=== PATIENT | female | born 1960 | race Caucasian/White ===

== ENCOUNTER → 2017-07-29 | Outpatient (CLI) | payer BC ==
[~2017-07-29] MED LIST: ABAT1INJ2 INJ; BLAC40CA2 PO; CHOL100010 PO; CYAN100T PO; FLUT0.15; FOLI1TAB7 PO; METH25IN13 SQ; MULTTAB58 PO; OMEP20CA59 PO; PRED-301 PO
--- NOTE | 2017-07-29 15:39 | MAMMOGRAPHY REPORT ---
BILATERAL DIGITAL SCREENING MAMMOGRAM TOMOSYNTHESIS WITH CAD: 07/29/2017 CLINICAL HISTORY: Routine screening. Patient has no complaints. TECHNIQUE: Breast tomosynthesis in addition to standard 2D mammography was performed. Current study was also evaluated with a Computer Aided Detection (CAD) system. COMPARISON: Comparison is made to exams dated: 07/14/2016 mammogram, 07/11/2015 mammogram, 06/05/2014 m ammogram, 05/28/2014 mammogram, 05/18/2014 mammogram, and 06/09/2013 mammogram - [facility] nter. BREAST COMPOSITION: There are scattered areas of fibroglandular density in both breasts. FINDINGS: No suspicious masses, calcifications, or areas of architectural distortion are noted in ei ther breast. There has been no significant interval change compared to prior exams. A biopsy marker clip is again noted in the left lower inner quadrant. Circumscribed benign-appearing 4 mm mass in th e left lower inner quadrant is stable. IMPRESSION: ACR BI-RADS CATEGORY 2: BENIGN There is no mammographic evidence of malignancy. A 1 year screening mammogram is recommended. The pa tient will receive written notification of the results. Approximately 10% of breast cancers are not detected with mammography. A negative mammographic report should not delay biopsy if a clinically suggestive mass is present. Kathya Liz M.D. /:07/29/2017 15:24:23 Geriatric Assistant: Elvi GAMING(Rubi)(Alfredo)(BD), [facility] letter sent: Normal 1/2 BI-RADS Code: ACR BI-RADS Category 2: Benign
== END | disposition home or self-care (01) ==
LOC: C.MAMM 12:49
PROVIDERS: ATTEND Family Medicine
DX: Z12.31 Encounter for screening mammogram for malignant neoplasm of breast (principal)

== ENCOUNTER → 2018-01-21 | Outpatient (CLI) | payer OTHER ==
[~2018-01-21] MED LIST changes: -FOLI1TAB7 PO; +FOLI1TAB8 PO
--- NOTE | 2018-01-21 16:33 | DIAGNOSTIC IMAGING REPORT ---
ADDENDUM After further review, an inflammatory arthritis cannot be favored given the absence of regional osteopenia and a prominent component of subchondral sclerosis and cystic change at the radiocarpal joint. This would favor CPPD, osteoarthritis, or posttraumatic arthritis. Electronically signed by: Aron Rosales M.D. 01/21/2018 4:52 PM Dictated Date/Time: 01/21/2018 4:52 PM ORIGINAL REPORT L HAND MIN 3 VIEWS ROUTINE CLINICAL HISTORY: 57 years-old Female presenting with BILATERAL LEG AND FOOT PAIN. TECHNIQUE: Frontal, oblique, and lateral views of the left hand were obtained. COMPARISON: Correlation made to plain radiographs of the right hand performed the same day. FINDINGS: Extensive joint space loss at the radiocarpal articulation with subchondral sclerosis and cystic change. No apparent widening of the scapholunate interval. The carpometacarpal, metacarpophalangeal, and interphalangeal joints are preserved. No acute fracture or malalignment. IMPRESSION: Extensive degenerative change at the radiocarpal articulation. This distribution would be atypical for osteoarthritis and could suggest an inflammatory arthropathy such as rheumatoid arthritis. Electronically signed by: Aron Rosales M.D. 01/21/2018 4:31 PM Dictated Date/Time: 01/21/2018 4:30 PM
--- NOTE | 2018-01-21 16:36 | DIAGNOSTIC IMAGING REPORT ---
ADDENDUM After further review, an inflammatory arthritis cannot be favored given the absence of regional osteopenia and a prominent component of subchondral sclerosis and cystic change at the radiocarpal joint. This would favor CPPD, osteoarthritis, or posttraumatic arthritis. Electronically signed by: Aron Rosales M.D. 01/21/2018 4:52 PM Dictated Date/Time: 01/21/2018 4:51 PM ORIGINAL REPORT R HAND MIN 3 VIEWS ROUTINE CLINICAL HISTORY: 57 years-old Female presenting with BILATERAL LEG AND FOOT PAIN. TECHNIQUE: Frontal, oblique, and lateral views of the right hand were obtained. COMPARISON: Correlation made to plain radiographs of the left hand performed the same day. FINDINGS: Severe joint space loss, subchondral sclerosis, and cystic change at the radiocarpal articulation. No evidence of widening of the scapholunate interval. Carpometacarpal, metacarpophalangeal, and interphalangeal joints are relatively preserved. No acute fracture or malalignment. No soft tissue abnormality. IMPRESSION: Severe degenerative change of the radiocarpal articulation, which are being atypical distribution for osteoarthritis. This could suggest calcium pyrophosphate dihydrate deposition disease (CPPD) versus posttraumatic arthritis or an inflammatory arthritis such as rheumatoid arthritis. Electronically signed by: Aron Rosales M.D. 01/21/2018 4:35 PM Dictated Date/Time: 01/21/2018 4:31 PM
[2018-01-21 16:41] LABS: BASO % 0.1 %; BASO ABS # 0.01 K/uL (0-0.2); EOS % 0.4 %; EOS ABS # 0.04 K/uL (0-0.5); HEMATOCRIT 41.1 % (37-47); HEMOGLOBIN 14.2 g/dL (12.0-16.0); IG# 0.02 K/uL (0.00-0.02); LYMPH % 15.8 %; LYMPH ABS # 1.42 K/uL (1.2-3.4); MEAN CELL VOLUME 96.9 fL (80-100); MEAN CORPUSCULAR HEMOGLOBIN 33.5 pg (25-34); MEAN CORPUSCULAR HGB CONC 34.5 g/dl (32-36); MEAN PLATELET VOLUME 12.8 fL (7.4-10.4); MONO ABS # 0.54 K/uL (0.11-0.59); NEUT % 77.5 %; NEUT ABS # 6.96 K/uL (1.4-6.5); PLATELET COUNT 202 K/uL (130-400); RED CELL DISTRIBUTION WIDTH CV 13.9 % (11.5-14.5); RED CELL DISTRIBUTION WIDTH SD 49.4 fL (36.4-46.3); WHITE BLOOD COUNT 8.99 K/uL (4.8-10.8)
--- NOTE | 2018-01-21 16:50 | DIAGNOSTIC IMAGING REPORT ---
R FOOT MIN 3 VIEWS ROUTINE, L FOOT MIN 3 VIEWS ROUTINE HISTORY: 57 years-old Female BILATERAL LEG AND FOOT PAIN chronic bilateral foot pain with history of rheumatoid arthritis COMPARISON: None available TECHNIQUE: 3 views of the bilateral feet for a total of 6 images FINDINGS: RIGHT FOOT: Severe joint space narrowing and subchondral cystic changes, subchondral sclerosis and marginal osteophytosis is compatible with osteoarthritis. Moderate osteoarthritis is also noted involving the second MTP joint. Mostly mild interphalangeal degenerative changes are noted throughout. The bones appear mildly demineralized. Moderate degenerative changes are also noted about the midfoot and hindfoot. No acute fracture, or subluxation. There is a probable subtle marginal erosion noted involving the medial aspect of the fourth metatarsal head. LEFT FOOT: Severe osteoarthritis of the first MTP joint with mild soft tissue prominence. The bones appear mildly demineralized. Mild to moderate degenerative changes are noted throughout the remaining MTP and interphalangeal joints. No acute fracture or subluxation. No definite evidence of erosive arthropathy. Small uncalcified noted about the calcaneus. Moderate dorsal spurring about the midfoot. Mild dorsal forefoot soft tissue swelling. IMPRESSION: 1. No acute fracture or subluxation. 2. 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 3. Probable subtle marginal erosion noted involving the medial aspect of the fourth metatarsal head. 4. Mild forefoot soft tissue swelling about the left foot. The above report was generated using voice recognition software. It may contain grammatical, syntax or spelling errors. Electronically signed by: Albaro Rhodes M.D. 01/21/2018 4:48 PM Dictated Date/Time: 01/21/2018 4:43 PM
== END | disposition home or self-care (01) ==
LOC: C.LAB1850 16:02
PROVIDERS: ATTEND Internal Medicine Rheumatology
DX: M79.671 Pain in right foot (principal); M79.672 Pain in left foot; Z79.899 Other long term (current) drug therapy; M06.071 Rheumatoid arthritis without rheumatoid factor, right ankle and foot; M06.072 Rheumatoid arthritis without rheumatoid factor, left ankle and foot; M19.041 Primary osteoarthritis, right hand; M19.042 Primary osteoarthritis, left hand

== ENCOUNTER → 2018-01-24 | Outpatient (CLI) | payer OTHER ==
[2018-01-24 15:07] LABS: ALBUMIN 3.3 gm/dl (3.4-5.0); ALT/SGPT 30 U/L (12-78); CREATININE 0.88 mg/dl (0.60-1.20)
[2018-01-24 15:10] LABS: ALKALINE PHOSPHATASE 85 U/L (45-117); AST/SGOT 16 U/L (15-37); TOTAL PROTEIN 7.8 gm/dl (6.4-8.2); TRANSFERRIN 212 mg/dl (200-360)
== END | disposition home or self-care (01) ==
LOC: C.LAB1850 13:55
PROVIDERS: ATTEND Internal Medicine Rheumatology
DX: M79.604 Pain in right leg (principal); M79.605 Pain in left leg; M79.671 Pain in right foot; M79.672 Pain in left foot

== ENCOUNTER → 2018-01-26 | Outpatient (CLI) | payer OTHER ==
--- NOTE | 2018-01-26 14:59 | DIAGNOSTIC IMAGING REPORT ---
BONE SCAN WHOLE BODY CLINICAL HISTORY: M06.9 Rheumatoid [id number] High risk medication use COMPARISON STUDY: Conventional radiographic evaluation of the feet dated January 21, 2018 FINDINGS: The patient was injected with 27.4 mCi of technetium 99m MDP. There are foci of mild increased activity at the level of the left knee consistent with degenerative/arthritic change. There is a focus of increased activity within the right hemimandible, likely secondary to dentition. There are foci of increased activity at the level of the first metatarsal phalangeal joint and first dorsal metatarsal joint, consistent with arthritic changes as described on the recent x-ray. There is a focus of intense increased activity at the level of the left first metatarsal phalangeal joint, consistent with arthritic changes as visualized on the recent x-ray. IMPRESSION: 1. Foci of increased activity within the feet consistent with arthritic changes 2. Focus of mild increased activity left knee, likely arthritic 3. Focus of increased activity within the right hemimandible, likely secondary to underlying dentition 4. Otherwise normal whole-body bone scan Electronically signed by: Esvin Rosales M.D. 01/26/2018 2:58 PM Dictated Date/Time: 01/26/2018 2:55 PM
== END | disposition home or self-care (01) ==
LOC: C.NUCL 10:53
PROVIDERS: ATTEND Internal Medicine Rheumatology
DX: M06.9 Rheumatoid arthritis, unspecified (principal); Z79.899 Other long term (current) drug therapy; M89.9 Disorder of bone, unspecified

== ENCOUNTER → 2018-03-08 | Outpatient (CLI) | payer OTHER ==
[2018-03-10 07:33] LABS: QUANTIF MITOGEN-NIL 9.65 IU/ML; QUANTIFERON NEGATIVE (NEGATIVE)
== END | disposition home or self-care (01) ==
LOC: C.LAB1850 14:01
PROVIDERS: ATTEND Internal Medicine Rheumatology
DX: M06.9 Rheumatoid arthritis, unspecified (principal)

== ENCOUNTER → 2018-06-17 | Outpatient (CLI) | payer OTHER ==
[2018-06-17 12:33] LABS: BASO % 0.1 %; BASO ABS # 0.01 K/uL (0-0.2); EOS % 1.5 %; EOS ABS # 0.11 K/uL (0-0.5); HEMATOCRIT 43.8 % (37-47); HEMOGLOBIN 14.3 g/dL (12.0-16.0); IG# 0.04 K/uL (0.00-0.02); LYMPH % 15.5 %; LYMPH ABS # 1.15 K/uL (1.2-3.4); MEAN CELL VOLUME 96.9 fL (80-100); MEAN CORPUSCULAR HEMOGLOBIN 31.6 pg (25-34); MEAN CORPUSCULAR HGB CONC 32.6 g/dl (32-36); MEAN PLATELET VOLUME 14.2 fL (7.4-10.4); MONO % 11.8 %; MONO ABS # 0.88 K/uL (0.11-0.59); NEUT % 70.6 %; NEUT ABS # 5.24 K/uL (1.4-6.5); PLATELET COUNT 197 K/uL (130-400); RED CELL DISTRIBUTION WIDTH CV 14.8 % (11.5-14.5); RED CELL DISTRIBUTION WIDTH SD 52.3 fL (36.4-46.3); WHITE BLOOD COUNT 7.43 K/uL (4.8-10.8)
[2018-06-17 12:53] LABS: ALBUMIN 3.2 gm/dl (3.4-5.0); ALKALINE PHOSPHATASE 76 U/L (45-117); ALT/SGPT 33 U/L (12-78); AST/SGOT 20 U/L (15-37); CREATININE 0.75 mg/dl (0.60-1.20); TOTAL PROTEIN 7.3 gm/dl (6.4-8.2)
== END | disposition home or self-care (01) ==
LOC: C.LAB1850 10:26
PROVIDERS: ATTEND Internal Medicine Rheumatology
DX: M06.9 Rheumatoid arthritis, unspecified (principal); M19.071 Primary osteoarthritis, right ankle and foot; M19.072 Primary osteoarthritis, left ankle and foot; Z79.52 Long term (current) use of systemic steroids

== ENCOUNTER 2023-06-02 10:42 | Observation (INO) ==
[2023-06-02] MEDS ORDERED: SODIUM CHLORIDE 0.9% 1000ML 1,000 ML IV ONE (11:32)
--- NOTE | 2023-06-02 11:35 | Emergency Department Note ---
Impression & Plan Pancreatitis, Abdominal pain ED Provider Note NAME: ADRIEN ARREAGA AGE: 62 SEX: F : 1960 ARRIVES VIA: Walk-In INFORMANT: Patient ED PROVIDER(S): Jordan Carmichael DO CHIEF COMPLAINT: Right mid abdominal pain HPI:Patient is a 62-year-old female who presents ER for right mid abdominal pain. This started Wednesday night into Wednesday morning. Associated with nausea but no vomiting. She notes that it was worse with eating and drinking. It improved on Wednesday and started back up again yesterday. No previous abdominal surgeries. No dysuria, urgency, or frequency. No other exacerbating or remitting factors. No chest pain or shortness of breath. PAST MEDICAL HISTORY:See Below PAST SURGICAL HISTORY:See Below FAMILY HISTORY:See Below SOCIAL HISTORY:See Below HOME MEDICATIONS:See Below ALLERGIES:See Below VITALS:See Below PHYSICAL EXAMINATION: GENERAL: Sitting up in bed, alert, well appearing, well nourished, no distress, non-toxic EYE EXAM: normal conjunctiva. OROPHARYNX: no exudate, no erythema, lips, buccal mucosa, and tongue normal and mucous membranes are moist NECK: supple, no nuchal rigidity, no adenopathy, non-tender LUNGS: Clear to auscultation. Normal chest wall mechanics HEART: no murmurs, S1 normal and S2 normal ABDOMEN: abdomen soft, TTP in RLQ, normo-active bowel sounds, no masses, no rebound or guarding. UPPER EXTREMITIES: upper extremities are grossly normal. LOWER EXTREMITIES: No pitting edema. NEURO EXAM: Normal sensorium, cranial nerves II-XII grossly intact, normal speech, no gross weakness of arms, no gross weakness of legs. MEDICAL DECISION MAKING: Patient is a 62-year-old female who presents ER for above-stated complaint. IV was established blood work was obtained. Labs show mild leukopenia at 4000. Hemoglobin elevated 16. BMP along with LFTs bilirubin was unremarkable. Lipase was elevated at 250. UA was contaminated. COVID-negative. CT abdomen pelvis showed no acute pathology. Patient was given an IV fluids. Patient was updated bedside. She declined pain medications. She is discussed case with the hospitalist for the elevated lipase abdominal pain and nausea worse with eating likely consistent with pancreatitis. Discussed with the hospitalist for further evaluation management and treatment Triage Nursing notes reviewed. Limited review of prior medical records performed Vital Signs: reviewed and remarkable for HTN Differential diagnosis: Differential diagnoses includes but is not limited to gastritis, peptic ulcer disease, GERD, gallbladder disease, pancreatitis, small bowel obstruction, appendicitis, diverticulitis, hernia, urinary tract infection, torsion,, perforation, trauma, infectious. ER treatment provided: See below Diagnostics interpreted by me include EKG and cardiac monitoring as listed below: -Cardiac Monitoring: An order was placed for continuous cardiac monitoring. The monitor shows a rate of 70 with sinus rhythm. -ECG: none -Laboratory studies:Interpreted by me as stated above in MDM and shown below. Imaging studies: Xrays: As interpreted by me:none CTs show: CT abdomen pelvis showed no obstruction per my read CT abdomen pelvis per radiology was without acute pathology. Consultation(s): As described in [facility] Procedures:none Critical Care: None Past Med/Surg History Medical History (Updated 06/02/23 @ 14:30 by Jordan Carmichael DO) GERD (gastroesophageal reflux disease) ANNMARIE (obstructive sleep apnea) Rheumatoid arthritis Surgical History S/P tubal ligation Chloride teeth extracted Social History (Updated 06/02/23 @ 13:19 by Caroline Vincent PA-C) Smoking Status: Never smoker Hx Alcohol Use: No Hx Substance Use: No Preferred Language: Russian marital status: Current Living Situation: Spouse Feels Safe at Home: Yes Allergies Allergies Allergy/AdvReac Type Severity Reaction Status Date / Time codeine Allergy Severe nausea Verified 06/02/23 13:31 Home Meds Home Medications Medication Instructions Recorded Confirmed acetaminophen 500 mg tablet 500 mg PO Q6H PRN Pain 06/02/23 06/02/23 cholecalciferol (vitamin D3) 50 50 mcg PO DAILY 06/02/23 06/02/23 mcg (2,000 unit) tablet (Vitamin D3) cyanocobalamin (vitamin B-12) 1,000 mcg PO DAILY 06/02/23 06/02/23 1,000 mcg tablet,extended release (Vitamin B-12 ER) ibuprofen 200 mg tablet 200 mg PO Q6H PRN Pain 06/02/23 06/02/23 multivitamin 1 tab PO DAILY 06/02/23 06/02/23 omeprazole 20 mg capsule,delayed 20 mg PO QAM 06/02/23 06/02/23 release prednisone 5 mg tablet 5 mg PO QAM 06/02/23 06/02/23 sarilumab 200 mg/1.14 mL 200 mg subcut Q14D 06/02/23 06/02/23 subcutaneous pen injector (Ianzara) tirzepatide 2.5 mg/0.5 mL 2.5 mg subcut .WEEKLY ON Fridays06/02/23 06/02/23 subcutaneous pen injector (Sonja) Results & Data (ED) Vital Signs Vital Signs - 24 hr 06/02/23 10:46 06/02/23 12:47 06/02/23 12:47 Temperature 37.0 C Temperature Source Temporal Artery Scan Pulse Rate 69 72 Pulse Rate [Apical] 72 Respiratory Rate 18 18 18 Respiratory Effort / Characteristics Respiratory Depth Blood Pressure 153/80 H Blood Pressure [Left Arm] 146/91 H Blood Pressure Mean 104 Blood Pressure Mean [Left Arm] 109 Blood Pressure Position [Left Arm] Semi-fowlers Pulse Oximetry 95 99 99 Oxygen Delivery Method Room Air Room Air Sepsis Recent Fever Within 48 Hours No Sepsis New/Unexplained Change in Mental Status No Sepsis Action Taken by Nursing No Action Required 06/02/23 13:19 06/02/23 14:05 Temperature Temperature Source Pulse Rate 69 Pulse Rate [Apical] 71 Respiratory Rate 21 Respiratory Effort / Characteristics Non-Labored Spontaneous Respiratory Depth Normal Blood Pressure Blood Pressure [Left Arm] 158/101 H Blood Pressure Mean Blood Pressure Mean [Left Arm] 120 Blood Pressure Position [Left Arm] Semi-fowlers Pulse Oximetry 98 Oxygen Delivery Method Sepsis Recent Fever Within 48 Hours Sepsis New/Unexplained Change in Mental Status Sepsis Action Taken by Nursing Laboratory Data 06/02/23 11:00 06/02/23 11:00 Lab Results 06/02/23 06/02/23 06/02/23 Range/Units 11:00 11:00 11:05 WBC 4.26 L (4.8-10.8) K/ul RBC 5.01 (4.20-5.40) M/uL Hgb 16.7 H (12.0-16.0) g/dl Hct 48.1 H (37.0-47.0) % MCV 96.0 (80.0-100.0) fL MCH 33.3 (25.0-34.0) pg MCHC 34.7 (32.0-36.0) g/dL RDW Std Deviation 45.5 (36.4-46.3) fL RDW Coeff of Zuleika 12.8 (11.5-14.5) % Plt Count 169 (130-400) K/uL MPV 14.4 H (9.4-12.4) fL Immature Gran % (Auto) 0.2 % Neut % (Auto) 59.5 % Lymph % (Auto) 26.5 % [place] % (Auto) 11.5 % Eos % (Auto) 1.6 % Baso % (Auto) 0.7 % Neut # (Auto) 2.53 (1.40-6.50) K/uL Lymph # (Auto) 1.13 L (1.2-3.4) K/uL [place] # (Auto) 0.49 (0.11-0.59) K/uL Eos # (Auto) 0.07 (0-0.50) K/uL Baso # (Auto) 0.03 (0-0.2) K/uL Immature Gran # (Auto) 0.01 (0.01-0.20) K/uL Sodium 141 (136-145) mmol/L Potassium 3.9 (3.5-5.1) mmol/L Chloride 109 H (98-107) mmol/L Carbon Dioxide 25 (21-32) mmol/L Anion Gap 7 (3-11) BUN 24 H (6-23) mg/dl Creatinine 0.96 (0.6-1.2) mg/dl Est Cr Clr Drug Dosing 79.4 ml/min Est GFR ( Amer) 74.0 ml/min Est GFR (Non-Af Amer) 63.8 ml/min BUN/Creatinine Ratio 25.0 H (10-20) Glucose 89 (70-99(Fasting)) mg/dl Calcium 9.4 (8.6-10.3) mg/dl Total Bilirubin 0.7 (0.2-1.0) mg/dl AST 32 (13-39) U/L ALT 55 H (7-52) U/L Alkaline Phosphatase 73 (34-104) U/L Total Protein 7.3 (6.0-8.3) gm/dl Albumin 4.5 (3.4-5.0) gm/dl Globulin 2.8 (2.5-4.0) gm/dl Albumin/Globulin Ratio 1.6 (0.9-2) Lipase 244 H (11-82) U/L Urine Color Yellow Urine Appearance Clear (Clear) Urine pH 5.5 (4.5-7.5) Ur Specific [place] 1.024 (1.000-1.030) Urine Protein Trace H (Negative) Urine Glucose (UA) Negative (Negative) Urine Ketones Trace H (Negative) Urine Blood Negative (Negative) Urine Nitrite Negative (Negative) Urine Bilirubin Negative (Negative) Urine Urobilinogen Negative (Negative) Ur Leukocyte Esterase 2+ H (Negative) Urine WBC (Auto) 10-30 H (0-5) /hpf Urine RBC (Auto) 0-4 (0-4) /hpf U Hyaline Cast (Auto) 1-5 (0-5) /lpf U Epithel Cells (Auto) >30 H (0-5) /lpf Urine Bacteria (Auto) Negative (Negative) SARS-CoV-2, RNA, NAAT (NEGATIVE) 06/02/23 Range/Units 12:55 WBC (4.8-10.8) K/ul RBC (4.20-5.40) M/uL Hgb (12.0-16.0) g/dl Hct (37.0-47.0) % MCV (80.0-100.0) fL MCH (25.0-34.0) pg MCHC (32.0-36.0) g/dL RDW Std Deviation (36.4-46.3) fL RDW Coeff of [place]ule[place] (11.5-14.5) % Plt Count (130-400) K/uL MPV (9.4-12.4) fL Immature Gran % (Auto) % Neut % (Auto) % Lymph % (Auto) % [place] % (Auto) % Eos % (Auto) % Baso % (Auto) % Neut # (Auto) (1.40-6.50) K/uL Lymph # (Auto) (1.2-3.4) K/uL [place] # (Auto) (0.11-0.59) K/uL Eos # (Auto) (0-0.50) K/uL Baso # (Auto) (0-0.2) K/uL Immature Gran # (Auto) (0.01-0.20) K/uL Sodium (136-145) mmol/L Potassium (3.5-5.1) mmol/L Chloride (98-107) mmol/L Carbon Dioxide (21-32) mmol/L Anion Gap (3-11) BUN (6-23) mg/dl Creatinine (0.6-1.2) mg/dl Est Cr Clr Drug Dosing ml/min Est GFR ( Amer) ml/min Est GFR (Non-Af Amer) ml/min BUN/Creatinine Ratio (10-20) Glucose (70-99(Fasting)) mg/dl Calcium (8.6-10.3) mg/dl Total Bilirubin (0.2-1.0) mg/dl AST (13-39) U/L ALT (7-52) U/L Alkaline Phosphatase (34-104) U/L Total Protein (6.0-8.3) gm/dl Albumin (3.4-5.0) gm/dl Globulin (2.5-4.0) gm/dl Albumin/Globulin Ratio (0.9-2) Lipase (11-82) U/L Urine Color Urine Appearance (Clear) Urine pH (4.5-7.5) Ur Specific [place] (1.000-1.030) Urine Protein (Negative) Urine Glucose (UA) (Negative) Urine Ketones (Negative) Urine Blood (Negative) Urine Nitrite (Negative) Urine Bilirubin (Negative) Urine Urobilinogen (Negative) Ur Leukocyte Esterase (Negative) Urine WBC (Auto) (0-5) /hpf Urine RBC (Auto) (0-4) /hpf U Hyaline Cast (Auto) (0-5) /lpf U Epithel Cells (Auto) (0-5) /lpf Urine Bacteria (Auto) (Negative) SARS-CoV-2, RNA, NAAT NEGATIVE (NEGATIVE) Administered Medications Discontinued Medications Sodium Chloride (Nss 1000ml) 1,000 mls @ 999 mls/hr IV .Q1H1M ONE Stop: 06/02/23 12:32 Last Infusion: 06/02/23 12:46 Dose: 0 mls/hr Documented By: Admin: 06/02/23 11:42 Dose: 999 mls/hr Documented By: Ioversol (Optiray 320 100ml) 94 ml IV ONCE ONE Stop: 06/02/23 12:25 Last Admin: 06/02/23 12:20 Dose: 94 ml Documented By: [facility] Imaging Data Radiologist's Impression: Abdomen/Pelvis CT 06/02/23 11:32 CT SCAN OF THE ABDOMEN AND PELVIS WITH IV CONTRAST CLINICAL HISTORY: Epigastric and right lower quadrant abdominal pain. Vomiting. COMPARISON STUDY: Abdominal CT dated 07/08/2012. TECHNIQUE: Following the IV administration of 94 cc of Optiray 320, CT scan of the abdomen and pelvis is performed from the lung bases to the proximal femora. Images are reviewed in the axial, sagittal, and coronal planes. IV contrast was administered without complication. A dose lowering technique was utilized adhering to the principles of ALARA. CT DOSE: 1430.29 mGy.cm FINDINGS: Lung bases: The heart is normal in size and without pericardial effusion. An 8 mm pulmonary nodule at the left lung base seen on image #54 is unchanged dating back to 2011. Long-term stability suggests a benign etiology. A 2 mm left basilar nodule on image #45, a 4 mm pleural-based left lower lobe nodule on image #19, a 3 mm pleural-based nodule in the right middle lobe on image #20, and a 4 mm right basilar nodule on image #57 are also unchanged. There is bibasilar scarring/atelectasis. No airspace consolidation or pleural effusion is identified. There is a moderate hiatal hernia. Liver: The contrast-enhanced liver is top normal in size and demonstrates diffusely diminished attenuation indicating steatosis. Fatty sparing is seen adjacent to the gallbladder fossa. Nodularity of the hepatic surface contour suggests early morphologic change of cirrhosis. There is no intrahepatic biliary ductal dilatation. The hepatic veins and portal veins are patent. A calcified granuloma is seen in the right lobe. Gallbladder: Unremarkable. Spleen: Normal in size and attenuation. Pancreas: Unremarkable. Adrenal glands: Unremarkable. Kidneys: The contrast enhanced kidneys demonstrate mild cortical atrophy and are without hydronephrosis. There are bilateral renal sinus cysts. The kidneys enhance symmetrically. There are at least 4 tiny nonobstructing left renal calculi which measure up to 3 mm. No right renal calculi are identified on this contrast-enhanced examination. No ureteral stone is seen Abdominal vasculature: The abdominal aorta is normal in course and caliber. There is a fat-containing umbilical hernia. Bowel: There is mild colonic diverticulosis without CT evidence of acute diverticulitis. No bowel obstruction is seen. Mild fecal retention is noted throughout the colon. The appendix is well-visualized and normal. Peritoneum: There is no intraperitoneal free air or abdominal ascites noting mild atherosclerotic calcification. Lymphadenopathy: None. Pelvic viscera: The bladder, uterus, and adnexa are normal as visualized. Skeletal structures: The skeletal structures are osteopenic. There is mild to moderate lumbosacral spondylosis. Sclerotic change is noted in the sacroiliac joints. No lytic or blastic lesions are seen. There are chronic/healed left- sided rib fractures. IMPRESSION: 1. No acute infectious or inflammatory findings are identified in the abdomen or pelvis. 2. Hepatic steatosis with early morphologic change of cirrhosis. 3. Colonic diverticulosis without CT evidence of acute diverticulitis. 4. Left-sided nephrolithiasis. 5. Hiatal hernia. 6. Additional findings as above. ACT 112: Negative or not required by law. Electronically signed by: Joe Harris M.D. 06/02/2023 12:41 PM Discharge Plan Visit Data Chief Complaint: Abdominal Pain Stated Complaint: ABDOMINAL PAIN, RASH, NECK PAIN ED Provider: Jordan Carmichael Discharge Problem: Pancreatitis, Abdominal pain Forms Stand Alone Forms: [facility] [employer] Prescriptions Prescriptions: No Action multivitamin Tablet 1 tab PO DAILY ibuprofen 200 mg Tablet 200 mg PO Q6H PRN (Reason: Pain) Kevzara 200 mg/1.14 mL Pen Injector 200 mg SUBCUT Q14D cyanocobalamin (vitamin B-12) [Vitamin B-12] 1,000 mcg Tablet Extended Release 1,000 mcg PO DAILY prednisone 5 mg tablet 5 mg PO QAM acetaminophen [Tylenol Ex Str Rapid Release] 500 mg Tablet 500 mg PO Q6H PRN (Reason: Pain) omeprazole 20 mg capsule,delayed release(DR/EC) 20 mg PO QAM cholecalciferol (vitamin D3) [Vitamin D3] 50 mcg (2,000 unit) Tablet 50 mcg PO DAILY Mounjaro 2.5 mg/0.5 mL pen injector 2.5 mg SUBCUT .WEEKLY ON FRIDAYS Referrals Referrals: Pat Saenz DO [Primary Care Provider] -
[2023-06-02 11:50] LABS: Basophils # (auto) 0.03 K/uL (0-0.2); Basophils % (auto) 0.7 %; Eosinophils # (auto) 0.07 K/uL (0-0.50); Eosinophils % (auto) 1.6 %; Hematocrit (blood only) 48.1 % (37.0-47.0); Hemoglobin 16.7 g/dl (12.0-16.0); Immature Granulocytes # (auto) 0.01 K/uL (0.01-0.20); Immature Granulocytes % (auto) 0.2 %; Lymphocytes # (auto) 1.13 K/uL (1.2-3.4); Lymphocytes % (auto) 26.5 %; Mean Corpuscular Hemoglobin 33.3 pg (25.0-34.0); Mean Corpuscular Hgb Conc 34.7 g/dL (32.0-36.0); Mean Platelet Volume 14.4 fL (9.4-12.4); Monocytes # (auto) 0.49 K/uL (0.11-0.59); Monocytes % (auto) 11.5 %; Neutrophils # (auto) 2.53 K/uL (1.40-6.50); Neutrophils % (auto) 59.5 %; Platelet Count 169 K/uL (130-400); RDW Coefficient of Variation 12.8 % (11.5-14.5); RDW Standard Deviation 45.5 fL (36.4-46.3); Red Blood Count 5.01 M/uL (4.20-5.40); White Blood Count 4.26 K/ul (4.8-10.8)
[2023-06-02 11:53] LABS: Albumin Globulin Ratio 1.6 (0.9-2); Albumin Level 4.5 gm/dl (3.4-5.0); Bilirubin,Total 0.7 mg/dl (0.2-1.0); Calcium 9.4 mg/dl (8.6-10.3); Creatinine Clr Calc Pharmacy 79.4 ml/min; Est GFR (Non-African American) 63.8 ml/min; Globulin 2.8 gm/dl (2.5-4.0); Potassium 3.9 mmol/L (3.5-5.1); Total Protein 7.3 gm/dl (6.0-8.3)
[2023-06-02 11:57] LABS: Appearance Urine Clear (Clear); Bacteria Urine Automated Negative (Negative); Bilirubin Urine Negative (Negative); Blood Urine Negative (Negative); Color Urine Yellow; Epithelial Cell Urine Auto >30 /lpf (0-5); Glucose Urine UA Negative (Negative); Ketones Urine Trace (Negative); Leukocyte Esterase Urine 2+ (Negative); Nitrite Urine Negative (Negative); Protein Urine Trace (Negative); RBC Urine Automated 0-4 /hpf (0-4); Specific Gravity Urine 1.024 (1.000-1.030); Urobilinogen Urine Negative (Negative); pH Urine 5.5 (4.5-7.5)
[2023-06-02] MEDS ORDERED: OPTIRAY 320 100ml IV ONE (12:24)
--- NOTE | 2023-06-02 12:42 | CT Scan Report ---
CT SCAN OF THE ABDOMEN AND PELVIS WITH IV CONTRAST CLINICAL HISTORY: Epigastric and right lower quadrant abdominal pain. Vomiting. COMPARISON STUDY: Abdominal CT dated 07/08/2012. TECHNIQUE: Following the IV administration of 94 cc of Optiray 320, CT scan of the abdomen and pelvi s is performed from the lung bases to the proximal femora. Images are reviewed in the axial, sagittal , and coronal planes. IV contrast was administered without complication. A dose lowering technique wa s utilized adhering to the principles of ALARA. CT DOSE: 1430.29 mGy.cm FINDINGS: Lung bases: The heart is normal in size and without pericardial effusion. An 8 mm pulmonary nodule at the left lung base seen on image #54 is unchanged dating back to 2011. Long-term stability suggests a benign etiology. A 2 mm left basilar nodule on image #45, a 4 mm pleural-based left lower lobe nodu le on image #19, a 3 mm pleural-based nodule in the right middle lobe on image #20, and a 4 mm right basilar nodule on image #57 are also unchanged. There is bibasilar scarring/atelectasis. No airspace consolidation or pleural effusion is identified. There is a moderate hiatal hernia. Liver: The contrast-enhanced liver is top normal in size and demonstrates diffusely diminished attenu ation indicating steatosis. Fatty sparing is seen adjacent to the gallbladder fossa. Nodularity of th e hepatic surface contour suggests early morphologic change of cirrhosis. There is no intrahepatic bi liary ductal dilatation. The hepatic veins and portal veins are patent. A calcified granuloma is seen in the right lobe. Gallbladder: Unremarkable. Spleen: Normal in size and attenuation. Pancreas: Unremarkable. Adrenal glands: Unremarkable. Kidneys: The contrast enhanced kidneys demonstrate mild cortical atrophy and are without hydronephros is. There are bilateral renal sinus cysts. The kidneys enhance symmetrically. There are at least 4 ti ny nonobstructing left renal calculi which measure up to 3 mm. No right renal calculi are identified on this contrast-enhanced examination. No ureteral stone is seen Abdominal vasculature: The abdominal aorta is normal in course and caliber. There is a fat-containing umbilical hernia. Bowel: There is mild colonic diverticulosis without CT evidence of acute diverticulitis. No bowel obs truction is seen. Mild fecal retention is noted throughout the colon. The appendix is well-visualize d and normal. Peritoneum: There is no intraperitoneal free air or abdominal ascites noting mild atherosclerotic yumiko cification. Lymphadenopathy: None. Pelvic viscera: The bladder, uterus, and adnexa are normal as visualized. Skeletal structures: The skeletal structures are osteopenic. There is mild to moderate lumbosacral sp ondylosis. Sclerotic change is noted in the sacroiliac joints. No lytic or blastic lesions are seen. There are chronic/healed left-sided rib fractures. IMPRESSION: 1. No acute infectious or inflammatory findings are identified in the abdomen or pelvis. 2. Hepatic steatosis with early morphologic change of cirrhosis. 3. Colonic diverticulosis without CT evidence of acute diverticulitis. 4. Left-sided nephrolithiasis. 5. Hiatal hernia. 6. Additional findings as above. ACT 112: Negative or not required by law. Electronically signed by: Joe Harris M.D. 06/02/2023 12:41 PM
--- NOTE | 2023-06-02 13:18 | History & Physical Report ---
Date of Service June 02, 2023 Assessment & Plan (1) Abdominal pain: (2) Pancreatitis: Plan This is a 62 yr old F who has a significant PMH of RA, ANNMARIE on CPAP, GERD who presents to ED 2/2 abd pain x 4 days. Sx started on Wednesday. Pt with off and on abdominal pain and nausea off and on x 4 days. Denies ETOH use. Elevated lipase on exam 244 with abd pain consistent with pancreatitis. CT abd/pelvis: No acute infectious or inflammatory findings are identified in the abdomen or pelvis.2. Hepatic steatosis with early morphologic change of cirrhosis.3. Colonic diverticulosis without CT evidence of acute diverticulitis.4. Left-sided nephrolithiasis. 5. Hiatal hernia.6. Additional findings as above. Acute pancreatitis Abdominal pain admit to med/surg clears only for now LR @ 150cc/hr IV tylenol for mild-mod pain; IV morphine severe pain follow LFTS/Lipase in a.m. fasting lipid panel in a.m. obtain RUQ US r/o GB pathology no ETOH, recently started Mounjaro 5 days ago -? could be culprit RA pt on daily prednisone and kevzara SQ q 2weeks GERD place on IV PPI while inpt ANNMARIE CPAP at HS DVT ppx: SQ Lovenox FULL CODE Dispo: admit to med/surg Pt was seen and examined in collaboration with Dr. Whitmore, please see addendum History of Present Illness Chief Complaint: Abdominal pain x 4 days. Primary Care Provider: Pat Saenz, DO This is a 62 yr old F who has a significant PMH of RA, ANNMARIE on CPAP, GERD who presents to ED 2/2 abd pain x 4 days. Sx started on Wednesday. She complains of off and on epigastric/LUQ abd pain. Initially she thought sx were related to acid reflux. She complains of off and on nausea and constipation. Sun and Mon she had small amount of diarrhea. She is always cold but denies documented fever or sweats. She denies any alcohol or tobacco use. She was recently prescribed Mounjaro last wednesday, 5 days ago, for weight loss. She follows with Dr. Sequeira for rheumatoid arthritis. She previously was on MTX but has been off of that due to increasing LFTS. She has hx of tubal but no other abdominal surgeries. She states she feels her food isn't being broke down. She occasionally gets loose bowels after meals and notices undigested food in loose stool. Allergies Allergy/AdvReac Type Severity Reaction Status Date / Time codeine Allergy Severe nausea Verified 06/02/23 13:31 Home Medications Medication Instructions Recorded Confirmed Type acetaminophen 500 mg tablet 500 mg PO Q6H PRN Pain 06/02/23 06/02/23 History cholecalciferol (vitamin D3) 50 50 mcg PO DAILY 06/02/23 06/02/23 History mcg (2,000 unit) tablet (Vitamin D3) cyanocobalamin (vitamin B-12) 1,000 mcg PO DAILY 06/02/23 06/02/23 History 1,000 mcg tablet,extended release (Vitamin B-12 ER) ibuprofen 200 mg tablet 200 mg PO Q6H PRN Pain 06/02/23 06/02/23 History multivitamin 1 tab PO DAILY 06/02/23 06/02/23 History omeprazole 20 mg capsule,delayed 20 mg PO QAM 06/02/23 06/02/23 History release prednisone 5 mg tablet 5 mg PO QAM 06/02/23 06/02/23 History sarilumab 200 mg/1.14 mL 200 mg subcut Q14D 06/02/23 06/02/23 History subcutaneous pen injector (Kevzara) tirzepatide 2.5 mg/0.5 mL 2.5 mg subcut .WEEKLY ON Fridays06/02/23 06/02/23 History subcutaneous pen injector (Mounjaro) Past Med/Surg History Medical History (Updated 06/02/23 @ 14:30 by Jordan Carmichael DO) GERD (gastroesophageal reflux disease) ANNMARIE (obstructive sleep apnea) Rheumatoid arthritis Surgical History S/P tubal ligation [place] teeth extracted Social History (Updated 06/02/23 @ 13:19 by Caroline Vincent PA-C) Smoking Status: Never smoker Hx Alcohol Use: No Hx Substance Use: No Preferred Language: Iraqi Personal Lines Insurance Agent Required: No Beliefs That Will Affect Care: None marital status: Current Living Situation: Spouse Other Information That Helps Us Care for You: No Feels Safe at Home: Yes Safety Concerns: Feels Safe At This Time Assistive Devices: None Review of Systems Review of Systems: All systems reviewed & are unremarkable except as noted in Subjective Physical Exam Physical Exam: please refer to Dr. Whitmore addendum for physical exam findings. Results & Data Results & Data Vital Signs (Past 12 Hours) Vital Signs Temp Pulse Pulse Resp BP BP Pulse Ox 06/02/23 12:47 72 18 99 06/02/23 12:47 72 18 146/91 H 99 06/02/23 10:46 37.0 C 69 18 153/80 H 95 O2 Del Method 06/02/23 12:47 Room Air 06/02/23 12:47 06/02/23 10:46 Room Air Diagnostic Findings Abdomen/Pelvis CT 06/02/23 11:32 CT SCAN OF THE ABDOMEN AND PELVIS WITH IV CONTRAST CLINICAL HISTORY: Epigastric and right lower quadrant abdominal pain. Vomiting. COMPARISON STUDY: Abdominal CT dated 07/08/2012. TECHNIQUE: Following the IV administration of 94 cc of Optiray 320, CT scan of the abdomen and pelvis is performed from the lung bases to the proximal femora. Images are reviewed in the axial, sagittal, and coronal planes. IV contrast was administered without complication. A dose lowering technique was utilized adhering to the principles of ALARA. CT DOSE: 1430.29 mGy.cm FINDINGS: Lung bases: The heart is normal in size and without pericardial effusion. An 8 mm pulmonary nodule at the left lung base seen on image #54 is unchanged dating back to 2011. Long-term stability suggests a benign etiology. A 2 mm left basilar nodule on image #45, a 4 mm pleural-based left lower lobe nodule on image #19, a 3 mm pleural-based nodule in the right middle lobe on image #20, and a 4 mm right basilar nodule on image #57 are also unchanged. There is bibasilar scarring/atelectasis. No airspace consolidation or pleural effusion is identified. There is a moderate hiatal hernia. Liver: The contrast-enhanced liver is top normal in size and demonstrates diffusely diminished attenuation indicating steatosis. Fatty sparing is seen adjacent to the gallbladder fossa. Nodularity of the hepatic surface contour suggests early morphologic change of cirrhosis. There is no intrahepatic biliary ductal dilatation. The hepatic veins and portal veins are patent. A calcified granuloma is seen in the right lobe. Gallbladder: Unremarkable. Spleen: Normal in size and attenuation. Pancreas: Unremarkable. Adrenal glands: Unremarkable. Kidneys: The contrast enhanced kidneys demonstrate mild cortical atrophy and are without hydronephrosis. There are bilateral renal sinus cysts. The kidneys enhance symmetrically. There are at least 4 tiny nonobstructing left renal calculi which measure up to 3 mm. No right renal calculi are identified on this contrast-enhanced examination. No ureteral stone is seen Abdominal vasculature: The abdominal aorta is normal in course and caliber. There is a fat-containing umbilical hernia. Bowel: There is mild colonic diverticulosis without CT evidence of acute diverticulitis. No bowel obstruction is seen. Mild fecal retention is noted throughout the colon. The appendix is well-visualized and normal. Peritoneum: There is no intraperitoneal free air or abdominal ascites noting mild atherosclerotic calcification. Lymphadenopathy: None. Pelvic viscera: The bladder, uterus, and adnexa are normal as visualized. Skeletal structures: The skeletal structures are osteopenic. There is mild to moderate lumbosacral spondylosis. Sclerotic change is noted in the sacroiliac joints. No lytic or blastic lesions are seen. There are chronic/healed left- sided rib fractures. IMPRESSION: 1. No acute infectious or inflammatory findings are identified in the abdomen or pelvis. 2. Hepatic steatosis with early morphologic change of cirrhosis. 3. Colonic diverticulosis without CT evidence of acute diverticulitis. 4. Left-sided nephrolithiasis. 5. Hiatal hernia. 6. Additional findings as above. ACT 112: Negative or not required by law. Electronically signed by: Joe Harris M.D. 06/02/2023 12:41 PM Medications Administered Medication List Discontinued Medications Sodium Chloride (Nss 1000ml) 1,000 mls @ 999 mls/hr IV .Q1H1M ONE Stop: 06/02/23 12:32 Last Infusion: 06/02/23 12:46 Dose: 0 mls/hr Documented By: Admin: 06/02/23 11:42 Dose: 999 mls/hr Documented By: AB Ioversol (Optiray 320 100ml) 94 ml IV ONCE ONE Stop: 06/02/23 12:25 Last Admin: 06/02/23 12:20 Dose: 94 ml Documented By: BRAlfredo ECG Rate (beats per minute): 75 Rhythm: normal sinus COVID-19 Results Results COVID-19 Adm Lab Results: RBC 5.01 M/uL (4.20-5.40) 06/02/23 WBC 4.26 K/ul (4.8-10.8) L 06/02/23 Hgb 16.7 g/dl (12.0-16.0) H 06/02/23 Hct 48.1 % (37.0-47.0) H 06/02/23 Plt Count 169 K/uL (130-400) 06/02/23 Neutrophils (%) (Auto) 59.5 % 06/02/23 Lymphocytes (%) (Auto) 26.5 % 06/02/23 Monocytes # (Auto) 0.49 K/uL (0.11-0.59) 06/02/23 Eosinophils # (Auto) 0.07 K/uL (0-0.50) 06/02/23 Immature Granulocyte % (Auto) 0.2 % 06/02/23 Neutrophils # (Auto) 2.53 K/uL (1.40-6.50) 06/02/23 Lymphocytes # (Auto) 1.13 K/uL (1.2-3.4) L 06/02/23 Monocytes # (Auto) 0.49 K/uL (0.11-0.59) 06/02/23 Eosinophils # (Auto) 0.07 K/uL (0-0.50) 06/02/23 Basophils # (Auto) 0.03 K/uL (0-0.2) 06/02/23 Immature Granulocyte # (Auto) 0.01 K/uL (0.01-0.20) 3 Na 141 mmol/L (136-145) 06/02/23 K 3.9 mmol/L (3.5-5.1) 06/02/23 Cl 109 mmol/L (98-107) H 06/02/23 CO2 25 mmol/L (21-32) 06/02/23 Anion Gap 7 (3-11) 06/02/23 BUN 24 mg/dl (6-23) H 06/02/23 Creatinine 0.96 mg/dl (0.6-1.2) 06/02/23 BUN/Creatinine Ratio 25.0 (10-20) H 06/02/23 Glucose Level 89 mg/dl (70-99(Fasting)) 06/02/23 Ca 9.4 mg/dl (8.6-10.3) 06/02/23 Total Bilirubin 0.7 mg/dl (0.2-1.0) 06/02/23 AST/SGOT 32 U/L (13-39) 06/02/23 ALT/SGPT 55 U/L (7-52) H 06/02/23 Alkaline Phosphatase 73 U/L (34-104) 06/02/23 Total Protein 7.3 gm/dl (6.0-8.3) 06/02/23 Albumin 4.5 gm/dl (3.4-5.0) 06/02/23 Globulin 2.8 gm/dl (2.5-4.0) 06/02/23 Albumin/Globulin Ratio 1.6 (0.9-2) 06/02/23 SARS-CoV-2, RNA, NAAT NEGATIVE (NEGATIVE) 06/02/23 Code Status & VTE Plan Code Status FULL CODE VTE Prophylaxis Plan VTE Prophylaxis will be ordered: Yes Supervising Physician Co-Signing Physician Notes Patient seen and examined independently. Discussed with above provider Patient is a 62-year-old female who presents with epigastric pain, nausea for the last 3 to 4 days after starting on GLP agonist(her first dose was on Wednesday) CT abdomen and pelvis did not show features of pancreatitis Lipase elevated On physical exam Constitutional: WD/WN, vitals as above, NAD, sitting up in bed, pleasant, conversing easily Respiratory: normal respiratory effort, lungs clear to auscultation, no wheeze, rales, rhonchi. Normal insp/exp effort, no accessory muscle use Cardiovascular: RRR, no murmur, no edema Vessels: no JVD or carotid bruit Chest: normal inspection of chest Abdomen: Mild tenderness in epigastric region Musculoskeletal: no cyanosis or clubbing, extremities motor strength 5/5 Skin: no rashes, warm and dry normal turgor Neurologic: PERRL, EOMI, accommodation nl, no face palsy, no dysarthria CN's II- XI intact bilaterally and moves all extremities Psychiatric: A+Ox3, euthymic affect Assessment/plan: Acute pancreatitis secondary to GLP 1 agonist IV hydration; initially was on LR 150 cc changed to 100 cc/h Clear liquid diet advance to low-fat diet Pain control Need to avoid GLP-1 agonist in the future Obtain right upper quadrant ultrasound Obtain triglyceride level Other medication continued.
--- NOTE | 2023-06-02 14:33 | Electrocardiogram Report ---
Test Reason : Blood Pressure : / mmHG Vent. Rate : 075 BPM Atrial Rate : 075 BPM P-R Int : 148 ms QRS Dur : 088 ms QT Int : 386 ms P-R-T Axes : 065 016 004 degrees QTc Int : 431 ms Normal sinus rhythm Normal ECG When compared with ECG of 17-JAN-2016 07:36, Inverted T waves have replaced nonspecific T wave abnormality in Inferior leads Nonspecific T wave abnormality now evident in Anterior leads Confirmed by Jayden Castillo ([id number]) on 06/02/2023 2:32:43 PM Referred By: REFERRED SELF Confirmed By:Ernie Castillo
[2023-06-02] MEDS ORDERED: ONDANSETRON INJ 2 MG/ML 2 ML VIAL IV PRN (15:24)
[2023-06-02] MEDS ORDERED: MoRPHine SULFATE 4 MG/ML 1 ML CARP\\VIAL IV PRN ×2 (15:24→18:18)
[2023-06-02] MEDS: LACTATED RINGER'S 1,000 ML IV SCH ×2 (15:50→22:19)
--- NOTE | 2023-06-02 19:20 | Ultrasound Report ---
ULTRASOUND RIGHT UPPER QUADRANT ABDOMEN CLINICAL HISTORY: Right upper quadrant abdominal pain. COMPARISON STUDY: Abdominal CT dated 06/02/2023. TECHNIQUE: Real-time, grayscale, and color flow sonography of the right upper quadrant of the abdomen was performed. Images are reviewed in the transverse and longitudinal planes. FINDINGS: Liver: The liver is top normal in size and demonstrates heterogeneous increased echotexture indicatin g severe steatosis. Note that this degrades acoustic penetration of the liver. Fatty sparing is seen adjacent to the gallbladder fossa. There is no intrahepatic biliary ductal dilatation. The main katharine l vein is patent. Gallbladder: The gallbladder is normal in appearance. No gallstones are identified. There is no gallb ladder wall thickening or pericholecystic fluid. A sonographic Marin's sign is reportedly absent. Th e common bile duct measures up to 0.4 cm in diameter. Pancreas: Visualized portions of the pancreatic head and body are normal in appearance. Right kidney: Survey images of the right kidney demonstrate mild cortical atrophy. Echotexture is nor mal. There is no hydronephrosis. Ascites: None. IMPRESSION: 1. No acute sonographic abnormality is identified. No gallstones are seen. 2. Severe hepatic steatosis. ACT 112: Negative or not required by law. Electronically signed by: Joe Harris M.D. 06/02/2023 7:19 PM
[2023-06-02] MEDS ORDERED: PANTOprazole 40 MG TAB PO STA (20:05)
[2023-06-02] MEDS: ACETAMINOPHEN 1,000 MG/100 ML VIAL IV PRN (20:32)
[2023-06-02] MEDS ORDERED: ENOXAPARIN INJ 40 MG/0.4 ML SYR SQ SCH (21:00)
[2023-06-03] MEDS: ACETAMINOPHEN 1,000 MG/100 ML VIAL IV PRN (04:41)
[2023-06-03] MEDS: LACTATED RINGER'S 1,000 ML IV SCH ×4 (04:54→17:53)
[2023-06-03 07:40] LABS: Hematocrit (blood only) 40.6 % (37.0-47.0); Hemoglobin 14.1 g/dl (12.0-16.0); Mean Corpuscular Hemoglobin 32.5 pg (25.0-34.0); Mean Corpuscular Hgb Conc 34.7 g/dL (32.0-36.0); Mean Corpuscular Volume 93.5 fL (80.0-100.0); Mean Platelet Volume 14.4 fL (9.4-12.4); Platelet Count 134 K/uL (130-400); RDW Coefficient of Variation 12.7 % (11.5-14.5); RDW Standard Deviation 43.8 fL (36.4-46.3); Red Blood Count 4.34 M/uL (4.20-5.40); White Blood Count 2.16 K/ul (4.8-10.8)
[2023-06-03 07:42] LABS: Basophils # (auto) 0.01 K/uL (0-0.2); Basophils % (auto) 0.5 %; Eosinophils # (auto) 0.08 K/uL (0-0.50); Eosinophils % (auto) 3.7 %; Immature Granulocytes # (auto) 0.01 K/uL (0.01-0.20); Immature Granulocytes % (auto) 0.5 %; Lymphocytes # (auto) 0.85 K/uL (1.2-3.4); Lymphocytes % (auto) 39.4 %; Monocytes # (auto) 0.32 K/uL (0.11-0.59); Monocytes % (auto) 14.8 %; Neutrophils # (auto) 0.89 K/uL (1.40-6.50); Neutrophils % (auto) 41.1 %
[2023-06-03 08:00] LABS: Albumin Globulin Ratio 1.8 (0.9-2); Albumin Level 3.5 gm/dl (3.4-5.0); BUN Creatinine Ratio 18.7 (10-20); Bilirubin,Total 0.8 mg/dl (0.2-1.0); Calcium 8.3 mg/dl (8.6-10.3); Creatinine Clr Calc Pharmacy 103.1 ml/min; Est GFR (African American) 99.7 ml/min; Magnesium 1.7 mg/dl (1.7-2.4); Potassium 3.8 mmol/L (3.5-5.1); Total Protein 5.5 gm/dl (6.0-8.3)
[2023-06-03] MEDS: predniSONE 5 MG TAB PO SCH (08:14)
--- NOTE | 2023-06-03 10:27 | Gastrointestinal Consultation ---
Date of Consultation June 03, 2023 Assessment & Plan (1) Pancreatitis: Pt is a 62 yo female w epigastric abd pain, nausea, found to have elevated lipase level consistent w mild pancreatitis ? Mounjaro related. LFTs normal, abd imaging studies (CT, US) wo signs of cholelithiasis, biliary ductal dilation. - LR IVF support - CL diet today, advance to low fat as tolerated - Symptomatic management - Hold Mounjaro - Avoid ETOH, tobacco, NSAIDs - Plan for OP EGD/EUS w possible Liver bx and Hepatology referral for hepatic steatosis +/- early cirrhosis Supervising Physician Co-Signing Physician Notes I personally saw and evaluated the patient on 06/03/2023 with VALERIE Jackson and agree with her findings and plan of care. patient admitted with epigastric pain found to have mild acute pancreatitis. She is tolerating a liquid diet and abdominal pain is improved. Mild epigastric tenderness to palpation. She has no gallstones on imaging and denies any alcohol use so pancreatitis could be related to recent start of GLP1 (Mounjaro). Ok to advance diet as tolerated. Continue IVF but once patient tolerating PO diet ok to stop. We discussed given concerns for early cirrhosis on imaging we will arrange outpatient hepatology follow up with EUS guided liver biopsy for further work up. She was on methotrexate for 10 years and has risk factors for DODD but will need complete serological work up as outpatient. Nenita Huitron, Gastroenterology and Hepatology History of Present Illness Reason for Consultation: Pancreatitis Requesting Physician: Dr. Antwon Dumont Attending Physician: Dr. Nenita Huitron History of Present Illness Pt is a 62 yo female w PMHx of RA, ANNMARIE on CPAP, GERD, who presented to ED w c/o epigastric abd pain x 4 days associated with nausea. Denies associated fever, ch ills, bowel habits changes. Denies recent travels, sick contact. She did start Mounjaro injection last Wednesday (2 days prior to symptoms started). Has RA, on Prednisone 5mg daily. Was on Methotrexate but dc'd due to elevated LFTs. Take Tylenol alternating with Ibuprofen for pain. Father w hx of liver and pancreatic ca dx'd at age 72. Denies ETOH, tobacco, illicit drugs. Labs reviewed - no signs of LFT elevation, lipase 244, now 54. Triglycerides 87. US and CT abd/pelvis wo gallstones or biliary ductal dilation. Liver appears steatotic ? nodular w early changes of cirrhosis Allergies Allergy/AdvReac Type Severity Reaction Status Date / Time codeine Allergy Severe nausea Verified 06/02/23 13:31 Home Medications Medication Instructions Recorded Confirmed Type acetaminophen 500 mg tablet 500 mg PO Q6H PRN Pain 06/02/23 06/02/23 History cholecalciferol (vitamin D3) 50 50 mcg PO DAILY 06/02/23 06/02/23 History mcg (2,000 unit) tablet (Vitamin D3) cyanocobalamin (vitamin B-12) 1,000 mcg PO DAILY 06/02/23 06/02/23 History 1,000 mcg tablet,extended release (Vitamin B-12 ER) ibuprofen 200 mg tablet 200 mg PO Q6H PRN Pain 06/02/23 06/02/23 History multivitamin 1 tab PO DAILY 06/02/23 06/02/23 History omeprazole 20 mg capsule,delayed 20 mg PO QAM 06/02/23 06/02/23 History release prednisone 5 mg tablet 5 mg PO QAM 06/02/23 06/02/23 History sarilumab 200 mg/1.14 mL 200 mg subcut Q14D 06/02/23 06/02/23 History subcutaneous pen injector (Kevzara) tirzepatide 2.5 mg/0.5 mL 2.5 mg subcut .WEEKLY ON Fridays06/02/23 06/02/23 History subcutaneous pen injector (Mounjaro) Patient History Medical History GERD (gastroesophageal reflux disease) ANNMARIE (obstructive sleep apnea) Rheumatoid arthritis Surgical History S/P tubal ligation [place] teeth extracted Social History Smoking Status: Never smoker Hx Alcohol Use: No Hx Substance Use: No Preferred Language: Maltese Signal Repairer Required: No Beliefs That Will Affect Care: None marital status: Current Living Situation: Spouse Other Information That Helps Us Care for You: No Feels Safe at Home: Yes Safety Concerns: Feels Safe At This Time Assistive Devices: None Review of Systems Review of Systems: All systems reviewed & are unremarkable except as noted in HPI & below Physical Exam Constitutional: WD/WN, vitals as above well groomed, cooperative and comfortable Eyes: PERRL, conjunctivae normal, anicteric sclerae ENMT: external ear and nose normal, oropharynx normal Respiratory: normal respiratory effort, lungs clear to auscultation Cardiovascular: RRR, no murmur, no edema Gastrointestinal (Abdomen): normal bowel sounds, soft, nontender, no hepatosplenomegaly Skin: no rashes, warm and dry no jaundice Psychiatric: A+Ox3, euthymic affect Lymphatic: no lymphedema Results & Data Vital Signs (Past 12 Hours) Vital Signs Temp Pulse Resp BP Pulse Ox O2 Del Method 06/03/23 08:15 Room Air 06/03/23 08:02 36.5 C 55 L 18 151/82 H 96 Room Air 06/02/23 23:45 Room Air, CPAP 06/03/23 02:16 17 95 06/02/23 22:45 36.5 C 67 16 152/75 H 97 CPAP
[2023-06-03] MEDS: PANTOprazole 40 MG in SYRINGE 0 ML IV SCH (11:33)
[2023-06-03] MEDS ORDERED: Nursing to Pharmacy Communication SCH (16:30)
[2023-06-03] MEDS: DICLOFENAC SOD 1% GEL 100 GM TUBE EXT SCH (16:34)
--- NOTE | 2023-06-03 16:42 | Hospitalist Progress Note ---
Date of Service June 03, 2023 Assessment & Plan (1) Abdominal pain: (2) Pancreatitis: Plan per admitting service notes with addendum: This is a 62 yr old F who has a significant PMH of RA, ANNMARIE on CPAP, GERD who presents to ED 2/2 abd pain x 4 days. Sx started on Wednesday. Pt with off and on abdominal pain and nausea off and on x 4 days. Denies ETOH use. Elevated lipase on exam 244 with abd pain consistent with pancreatitis. CT abd/pelvis: No acute infectious or inflammatory findings are identified in the abdomen or pelvis.2. Hepatic steatosis with early morphologic change of cirrhosis.3. Colonic diverticulosis without CT evidence of acute diverticulitis.4. Left-sided nephrolithiasis. 5. Hiatal hernia.6. Additional findings as above. Acute pancreatitis likely secondary to Mounjaro Lipase: 244 CT abdomen and pelvis: 1. No acute infectious or inflammatory findings are identified in the abdomen or pelvis. 2. Hepatic steatosis with early morphologic change of cirrhosis. 3. Colonic diverticulosis without CT evidence of acute diverticulitis. 4. Left-sided nephrolithiasis. 5. Hiatal hernia. 6. Additional findings as above. Abdominal ultrasound: 1. No acute sonographic abnormality is identified. No gallstones are seen. 2. Severe hepatic steatosis. Abdominal pain improving Advance diet to clear liquids Continue IV LR GI consulted: Recommend outpatient EUS in 4 to 6 weeks Stop Mounjaro Severe hepatic steatosis Recommend outpatient liver biopsy in 4 to 6 weeks RA pt on daily prednisone and kevzara SQ q 2weeks GERD place on IV PPI while inpt ANNMARIE CPAP at HS DVT ppx: SQ Lovenox FULL CODE Dispo: Anticipate discharge home tomorrow when medically stable plan of care discussed with patient in detail and at length all questions answered She is understanding, agreeable, comfortable with the plan of care Admission and Anticipated Discharge Date Admission Date: June 02, 2023 Subjective ff up for acute pancreatitis, etc seen resting in bed, comfortable states she feels better today abdominal pain resolved has some reflux no chest pain, dyspnea, palpitations, dizziness no other new symptoms Review of Systems Review of Systems: all noted and negative except for above Physical Exam Physical Exam: General- oriented x 3, not in distress, speaks in sentences with no effort or accessory muscle use Head- atraumatic Eyes- PERRL, EOMI, anicteric ENT- oropharynx clear Neck- supple, no JVD, no adenopathy, no thyromegaly; carotids +2/2, no bruits appreciated Lungs- clear to auscultation bilaterally, no rales/wheezes Heart- normal rate, regular rhythm; no murmur, no gallop, no rub appreciated Abdomen- normal bowel sounds, nondistended, soft, nontender, no masses or hepatosplenomegaly Extremities- no pretibial edema, no calf tenderness; peripheral pulses intact Neuro- alert, oriented x 3; CN 2-12 grossly intact; motor 5/5 bilaterally;sensation 100% on all extremities; no other gross focal neurologic deficits Skin- warm & dry Results & Data Results & Data Vital Signs (Past 12 Hours) Vital Signs Temp Pulse Resp BP Pulse Ox O2 Del Method 06/03/23 15:56 36.5 C 57 L 18 161/91 H 96 Room Air 06/03/23 08:15 Room Air 06/03/23 08:02 36.5 C 55 L 18 151/82 H 96 Room Air all noted and reviewed including below
[2023-06-03] MEDS: ENOXAPARIN INJ 40 MG/0.4 ML SYR SQ SCH (19:43)
[2023-06-03] MEDS ORDERED: DICLOFENAC SOD 1% GEL 100 GM TUBE EXT SCH (21:00)
[2023-06-04] MEDS: LACTATED RINGER'S 1,000 ML IV SCH ×2 (01:36→08:09)
[2023-06-04] MEDS: ENOXAPARIN INJ 40 MG/0.4 ML SYR SQ SCH ×2 (08:09→20:38)
[2023-06-04] MEDS: DICLOFENAC SOD 1% GEL 100 GM TUBE EXT SCH ×2 (08:10→20:38)
[2023-06-04] MEDS: predniSONE 5 MG TAB PO SCH (08:10)
[2023-06-04 10:23] LABS: Basophils # (auto) 0.02 K/uL (0-0.2); Eosinophils # (auto) 0.05 K/uL (0-0.50); Eosinophils % (auto) 2.4 %; Hematocrit (blood only) 39.8 % (37.0-47.0); Hemoglobin 13.7 g/dl (12.0-16.0); Lymphocytes % (auto) 33.3 %; Mean Corpuscular Hemoglobin 33.3 pg (25.0-34.0); Mean Corpuscular Hgb Conc 34.4 g/dL (32.0-36.0); Mean Corpuscular Volume 96.8 fL (80.0-100.0); Mean Platelet Volume 14.2 fL (9.4-12.4); Monocytes # (auto) 0.28 K/uL (0.11-0.59); Monocytes % (auto) 13.3 %; Neutrophils # (auto) 1.05 K/uL (1.40-6.50); Platelet Count 130 K/uL (130-400); RDW Coefficient of Variation 12.6 % (11.5-14.5); RDW Standard Deviation 44.9 fL (36.4-46.3); Red Blood Count 4.11 M/uL (4.20-5.40)
[2023-06-04 10:25] LABS: BUN Creatinine Ratio 10.3 (10-20); Calcium 8.4 mg/dl (8.6-10.3); Creatinine Clr Calc Pharmacy 99.1 ml/min; Est GFR (African American) 95.1 ml/min; Est GFR (Non-African American) 82.1 ml/min; Potassium 3.4 mmol/L (3.5-5.1)
[2023-06-04] MEDS: PANTOprazole 40 MG in SYRINGE 0 ML IV SCH (11:11)
[2023-06-04] MEDS ORDERED: POTASSIUM CHLORIDE CRTAB 20 MEQ TABCR PO STA (12:41)
--- NOTE | 2023-06-04 14:22 | Hospitalist Progress Note ---
Date of Service June 04, 2023 Assessment & Plan (1) Abdominal pain: (2) Pancreatitis: Plan per admitting service notes with addendum: This is a 62 yr old F who has a significant PMH of RA, ANNMARIE on CPAP, GERD who presents to ED 2/2 abd pain x 4 days. Sx started on Wednesday. Pt with off and on abdominal pain and nausea off and on x 4 days. Denies ETOH use. Mild acute pancreatitis likely secondary to Mounjaro Lipase: 244 CT abdomen and pelvis: 1. No acute infectious or inflammatory findings are identified in the abdomen or pelvis. 2. Hepatic steatosis with early morphologic change of cirrhosis. 3. Colonic diverticulosis without CT evidence of acute diverticulitis. 4. Left-sided nephrolithiasis. 5. Hiatal hernia. 6. Additional findings as above. Abdominal ultrasound: 1. No acute sonographic abnormality is identified. No gallstones are seen. 2. Severe hepatic steatosis. Abdominal pain resolved Advance diet to soft Discontinue IV LR Stop Mounjaro GI consulted: Recommend outpatient EUS in 4 to 6 weeks If patient tolerates evening meal well, will be discharged to home Severe hepatic steatosis Recommend outpatient liver biopsy in 4 to 6 weeks GI clinic will be contacting the patient RA pt on daily prednisone and kevzara SQ q 2weeks GERD PPI while admitted ANNMARIE CPAP at HS DVT ppx: SQ Lovenox FULL CODE Dispo: Anticipate discharge to home later this evening plan of care discussed with patient and her family at bedside in detail and at length all questions answered She is understanding, agreeable, comfortable with the plan of care Admission and Anticipated Discharge Date Admission Date: June 02, 2023 Subjective Follow-up for acute pancreatitis, etc. Seen sitting up in bed, having lunch, in good spirits States she feels better overall No abdominal pain, no nausea vomiting, fevers or chills No other new symptoms Review of Systems Review of Systems: all noted and negative except for above Physical Exam Physical Exam: General- oriented x 3, not in distress, speaks in sentences with no effort or accessory muscle use Eyes- anicteric Neck- no JVD Lungs- clear breath sounds bilaterally, no rales/wheezes Heart- normal rate, regular rhythm; no murmurs Abdomen- normal bowel sounds, nondistended, soft, nontender Extremities- no pretibial edema, no calf tenderness Neuro- alert, oriented x 3; no gross focal neurologic deficits Skin- warm & dry Results & Data Results & Data Vital Signs (Past 12 Hours) Vital Signs Temp Pulse Pulse Resp BP Pulse Ox O2 Del Method 06/04/23 07:20 36.6 C 55 L 18 150/71 H 95 Room Air 06/04/23 03:12 96 H 14 71 L all noted and reviewed including below
[2023-06-04] MEDS ORDERED: hydrALAZINE HCL 20 MG/ML VIAL IV ONE (17:00)
[2023-06-04] MEDS ORDERED: amLODIPine BESYLATE 5 MG TAB PO SCH (21:00)
[2023-06-05 07:06] LABS: Creatinine Clr Calc Pharmacy 96.7 ml/min; Est GFR (African American) 92.2 ml/min; Est GFR (Non-African American) 79.6 ml/min
[2023-06-05] MEDS: DICLOFENAC SOD 1% GEL 100 GM TUBE EXT SCH (08:05)
[2023-06-05] MEDS: ENOXAPARIN INJ 40 MG/0.4 ML SYR SQ SCH (08:16)
[2023-06-05] MEDS: predniSONE 5 MG TAB PO SCH (08:16)
[2023-06-05] MEDS ORDERED: amLODIPine BESYLATE 5 MG TAB PO SCH (09:00)
[2023-06-05] MEDS ORDERED: PANTOprazole 40 MG TAB PO SCH (09:00)
[2023-06-05] MEDS ORDERED: lisinopril 10 MG TAB PO ONE (12:48)
--- NOTE | 2023-06-05 18:40 | Hospitalist Progress Note ---
Date of Service June 05, 2023 Assessment & Plan (1) Abdominal pain: (2) Pancreatitis: Plan per admitting service notes with addendum: This is a 62 yr old F who has a significant PMH of RA, ANNMARIE on CPAP, GERD who presents to ED 2/2 abd pain x 4 days. Sx started on Wednesday. Pt with off and on abdominal pain and nausea off and on x 4 days. Denies ETOH use. Mild acute pancreatitis likely secondary to Mounjaro Lipase: 244 CT abdomen and pelvis: 1. No acute infectious or inflammatory findings are identified in the abdomen or pelvis. 2. Hepatic steatosis with early morphologic change of cirrhosis. 3. Colonic diverticulosis without CT evidence of acute diverticulitis. 4. Left-sided nephrolithiasis. 5. Hiatal hernia. 6. Additional findings as above. Abdominal ultrasound: 1. No acute sonographic abnormality is identified. No gallstones are seen. 2. Severe hepatic steatosis. given Lactated Ringer's Abdominal pain resolved Advance diet to soft Stop Mounjaro GI consulted: Recommend outpatient EUS in 4 to 6 weeks If patient tolerates evening meal well, will be discharged to home Severe hepatic steatosis Recommend outpatient liver biopsy in 4 to 6 weeks GI clinic will be contacting the patient Hypertension from IV fluids? Lisinopril 10mg daily ff up with PCP in 1 week RA pt on daily prednisone and kevzara SQ q 2weeks GERD PPI while admitted ANNMARIE CPAP at HS DVT ppx: SQ Lovenox FULL CODE Dispo: d/c home ff up with PCP in 1 week ff up with GI in 2 weeks plan of care discussed with patient and her family at bedside in detail and at length all questions answered She is understanding, agreeable, comfortable with the plan of care Admission and Anticipated Discharge Date Admission Date: June 02, 2023 Subjective ff up for acute pancreatitis, etc seen resting in bed, sitting up in good spirits feels fine overall no abdominal pain, nausea no chest pain, dyspnea, palpitations, dizziness no other symptoms Review of Systems Review of Systems: all noted and negative except for above Physical Exam Physical Exam: General- oriented x 3, not in distress, speaks in sentences with no effort or accessory muscle use Eyes- anicteric Neck- no JVD Lungs- clear breath sounds BL Heart- normal rate, regular rhythm; no murmurs Abdomen- normal bowel sounds, nondistended, soft, nontender Extremities- no pretibial edema, no calf tenderness Neuro- alert, oriented x 3; no gross focal neurologic deficits Skin- warm & dry Results & Data Results & Data Vital Signs (Past 12 Hours) Vital Signs Temp Pulse Resp BP BP Pulse Ox O2 Del Method 06/05/23 13:39 146/84 H 06/05/23 13:33 36.8 C 77 18 137/74 160/94 H 94 06/05/23 07:58 36.8 C 77 18 160/94 H 94 Room Air all noted and reviewed including below
--- NOTE | 2023-06-05 18:45 | Discharge Summary ---
Discharge Summary Date of Service June 05, 2023 Notes For Next Care Provider Medication Changes From Visit Lisinopril 10mg po daily Admission HPI Per Admitting Provider This is a 62 yr old F who has a significant PMH of RA, ANNMARIE on CPAP, GERD who presents to ED 2/2 abd pain x 4 days. Sx started on Wednesday. She complains of off and on epigastric/LUQ abd pain. Initially she thought sx were related to acid reflux. She complains of off and on nausea and constipation. Sun and Mon she had small amount of diarrhea. She is always cold but denies documented fever or sweats. She denies any alcohol or tobacco use. She was recently prescribed Mounjaro last wednesday, 5 days ago, for weight loss. She follows with Dr. Sequeira for rheumatoid arthritis. She previously was on MTX but has been off of that due to increasing LFTS. She has hx of tubal but no other abdominal surgeries. She states she feels her food isn't being broke down. She occasionally gets loose bowels after meals and notices undigested food in loose stool. Admission Exam Per Admitting Provider Constitutional: WD/WN, vitals as above, NAD, sitting up in bed, pleasant, conversing easily Respiratory: normal respiratory effort, lungs clear to auscultation, no wheeze, rales, rhonchi. Normal insp/exp effort, no accessory muscle use Cardiovascular: RRR, no murmur, no edema Vessels: no JVD or carotid bruit Chest: normal inspection of chest Abdomen: Mild tenderness in epigastric region Musculoskeletal: no cyanosis or clubbing, extremities motor strength 5/5 Skin: no rashes, warm and dry normal turgor Neurologic: PERRL, EOMI, accommodation nl, no face palsy, no dysarthria CN's II- XI intact bilaterally and moves all extremities Psychiatric: A+Ox3, euthymic affect Principal Dx & Hospital Course #1 = Principal Diagnosis (1) Abdominal pain: (2) Pancreatitis: Plan per admitting service notes with addendum: This is a 62 yr old F who has a significant PMH of RA, ANNMARIE on CPAP, GERD who presents to ED 2/2 abd pain x 4 days. Sx started on Wednesday. Pt with off and on abdominal pain and nausea off and on x 4 days. Denies ETOH use. Mild acute pancreatitis likely secondary to Mounjaro Lipase: 244 CT abdomen and pelvis: 1. No acute infectious or inflammatory findings are identified in the abdomen or pelvis. 2. Hepatic steatosis with early morphologic change of cirrhosis. 3. Colonic diverticulosis without CT evidence of acute diverticulitis. 4. Left-sided nephrolithiasis. 5. Hiatal hernia. 6. Additional findings as above. Abdominal ultrasound: 1. No acute sonographic abnormality is identified. No gallstones are seen. 2. Severe hepatic steatosis. given Lactated Ringer's Abdominal pain resolved Advance diet to soft Stop Mounjaro GI consulted: Recommend outpatient EUS in 4 to 6 weeks If patient tolerates evening meal well, will be discharged to home Severe hepatic steatosis Recommend outpatient liver biopsy in 4 to 6 weeks GI clinic will be contacting the patient Hypertension from IV fluids? Lisinopril 10mg daily ff up with PCP in 1 week RA pt on daily prednisone and kevzara SQ q 2weeks GERD PPI while admitted ANNMARIE CPAP at HS DVT ppx: SQ Lovenox FULL CODE Dispo: d/c home ff up with PCP in 1 week ff up with GI in 2 weeks plan of care discussed with patient and her family at bedside in detail and at length all questions answered She is understanding, agreeable, comfortable with the plan of care Discharge Exam General- oriented x 3, not in distress, speaks in sentences with no effort or accessory muscle use Eyes- anicteric Neck- no JVD Lungs- clear breath sounds BL Heart- normal rate, regular rhythm; no murmurs Abdomen- normal bowel sounds, nondistended, soft, nontender Extremities- no pretibial edema, no calf tenderness Neuro- alert, oriented x 3; no gross focal neurologic deficits Skin- warm & dry Updated Medication List Medication Instructions Recorded Confirmed Type acetaminophen 500 mg tablet 500 mg PO Q6H PRN Pain 06/02/23 06/02/23 History cholecalciferol (vitamin D3) 50 50 mcg PO DAILY 06/02/23 06/02/23 History mcg (2,000 unit) tablet (Vitamin D3) cyanocobalamin (vitamin B-12) 1,000 mcg PO DAILY 06/02/23 06/02/23 History 1,000 mcg tablet,extended release (Vitamin B-12 ER) ibuprofen 200 mg tablet 200 mg PO Q6H PRN Pain 06/02/23 06/02/23 History multivitamin 1 tab PO DAILY 06/02/23 06/02/23 History omeprazole 20 mg capsule,delayed 20 mg PO QAM 06/02/23 06/02/23 History release prednisone 5 mg tablet 5 mg PO QAM 06/02/23 06/02/23 History sarilumab 200 mg/1.14 mL 200 mg subcut Q14D 06/02/23 06/02/23 History subcutaneous pen injector (Kevzara) lisinopril 10 mg tablet 10 mg PO QAM 30 days #30 tabs 06/05/23 Rx Hospital Stay Data Consultations 06/02/23 12:51 ED Decision to Admit Stat 06/03/23 08:07 Consult Gastroenterology Routine Diagnostic Imagining Performed 06/02/23 11:32 CT Abd and Pelvis [CT abd pelvis IV con only] Stat COMPARISON STUDY: Abdominal CT dated 07/08/2012. TECHNIQUE: Following the IV administration of 94 cc of Optiray 320, CT scan of the abdomen and pelvis is performed from the lung bases to the proximal femora. Images are reviewed in the axial, sagittal, and coronal planes. IV contrast was administered without complication. A dose lowering technique was utilized adhering to the principles of ALARA. CT DOSE: 1430.29 mGy.cm FINDINGS: Lung bases: The heart is normal in size and without pericardial effusion. An 8 mm pulmonary nodule at the left lung base seen on image #54 is unchanged dating back to 2011. Long-term stability suggests a benign etiology. A 2 mm left basilar nodule on image #45, a 4 mm pleural-based left lower lobe nodule on image #19, a 3 mm pleural-based nodule in the right middle lobe on image #20, and a 4 mm right basilar nodule on image #57 are also unchanged. There is bibasilar scarring/atelectasis. No airspace consolidation or pleural effusion is identified. There is a moderate hiatal hernia. Liver: The contrast-enhanced liver is top normal in size and demonstrates diffusely diminished attenuation indicating steatosis. Fatty sparing is seen adjacent to the gallbladder fossa. Nodularity of the hepatic surface contour suggests early morphologic change of cirrhosis. There is no intrahepatic biliary ductal dilatation. The hepatic veins and portal veins are patent. A calcified granuloma is seen in the right lobe. Gallbladder: Unremarkable. Spleen: Normal in size and attenuation. Pancreas: Unremarkable. Adrenal glands: Unremarkable. Kidneys: The contrast enhanced kidneys demonstrate mild cortical atrophy and are without hydronephrosis. There are bilateral renal sinus cysts. The kidneys enhance symmetrically. There are at least 4 tiny nonobstructing left renal calculi which measure up to 3 mm. No right renal calculi are identified on this contrast-enhanced examination. No ureteral stone is seen Abdominal vasculature: The abdominal aorta is normal in course and caliber. There is a fat-containing umbilical hernia. Bowel: There is mild colonic diverticulosis without CT evidence of acute diverticulitis. No bowel obstruction is seen. Mild fecal retention is noted throughout the colon. The appendix is well-visualized and normal. Peritoneum: There is no intraperitoneal free air or abdominal ascites noting mild atherosclerotic calcification. Lymphadenopathy: None. Pelvic viscera: The bladder, uterus, and adnexa are normal as visualized. Skeletal structures: The skeletal structures are osteopenic. There is mild to moderate lumbosacral spondylosis. Sclerotic change is noted in the sacroiliac joints. No lytic or blastic lesions are seen. There are chronic/healed left- sided rib fractures. IMPRESSION: 1. No acute infectious or inflammatory findings are identified in the abdomen or pelvis. 2. Hepatic steatosis with early morphologic change of cirrhosis. 3. Colonic diverticulosis without CT evidence of acute diverticulitis. 4. Left-sided nephrolithiasis. 5. Hiatal hernia. 6. Additional findings as above. ACT 112: Negative or not required by law. 06/02/23 13:21 US abdomen limited Routine COMPARISON STUDY: Abdominal CT dated 06/02/2023. TECHNIQUE: Real-time, grayscale, and color flow sonography of the right upper quadrant of the abdomen was performed. Images are reviewed in the transverse and longitudinal planes. FINDINGS: Liver: The liver is top normal in size and demonstrates heterogeneous increased echotexture indicating severe steatosis. Note that this degrades acoustic penetration of the liver. Fatty sparing is seen adjacent to the gallbladder fossa. There is no intrahepatic biliary ductal dilatation. The main portal vein is patent. Gallbladder: The gallbladder is normal in appearance. No gallstones are identified. There is no gallbladder wall thickening or pericholecystic fluid. A sonographic Marin's sign is reportedly absent. The common bile duct measures up to 0.4 cm in diameter. Pancreas: Visualized portions of the pancreatic head and body are normal in appearance. Right kidney: Survey images of the right kidney demonstrate mild cortical atrophy. Echotexture is normal. There is no hydronephrosis. Ascites: None. IMPRESSION: 1. No acute sonographic abnormality is identified. No gallstones are seen. 2. Severe hepatic steatosis. ACT 112: Negative or not required by law. Electronically signed by: Joe Harris M.D. 06/02/2023 7:19 PM Pending Results Patient Have Any Pending Studies at Discharge: No Discharge Instructions Given to Patient (Per Discharging Provider) PLEASE REFER TO YOUR NEW MEDICATION LIST AND FOLLOW INSTRUCTIONS CAREFULLY. Discontinue Mounjaro. Start Lisinopril 10mg daily for blood pressure control. PLEASE CALL YOUR PRIMARY CARE PHYSICIAN OR RETURN TO THE ER IF WITH WORSENING OF SYMPTOMS, INCLUDING Abdominal pain, nausea vomiting, fevers or chills, etc. FOLLOW UP WITH PRIMARY CARE PHYSICIAN AND PROFESSOR OF ART OUTLINED ABOVE. TAKE CARE. Total Time Total Time Spent Total Time Spent (In Minutes): >30 minutes
[2023-06-06] MEDS ORDERED: lisinopril 10 MG TAB PO SCH (09:00)
== END 2023-06-05 14:53 | disposition home or self-care (01) ==
LOC: ED 10:42 → INTOOBSV 13:14 → SUATTDRO 13:14 → 3N 13:14